=== PATIENT | male | born 1960 | race Caucasian/White ===

== ENCOUNTER → 2018-01-08 | Outpatient (CLI) | payer MEDICARE ==
--- NOTE | 2018-01-08 23:19 | MR ---
EXAMINATION TYPE: MR lumbar spine wo/w con DATE OF EXAM: 01/08/2018 COMPARISON: NONE HISTORY: LBP, BLE radic, laminectomy 3 yrs ago TECHNIQUE: Multiplanar, multisequence images of the lumbar spine were acquired utilizing 10 mL intravenous Gadav ist gadolinium contrast. The lumbar vertebra have normal alignment. Disc spaces are fairly well-maintained for the patient's a ge. There is hypertrophic facet arthropathy and ligamentum flavum thickening. There is spinal stenosi s at L5-S1. There is also mild relative spinal stenosis at L to 3 L3-4. There is no compression fract ure. There is no paraspinal mass. I see no focal bone destruction. The visualized sacroiliac joints a ppear intact. There is some posterior epidural enhancement at L5-S1 level. There is some thickening a nd epidural enhancement along the posterior longitudinal ligament at the L4 and L5 level. IMPRESSION: Epidural enhancement in the lower lumbar spine consistent with scarring. This is a change compared to the previous exam. There is a relative spinal stenosis as above at L5-S1 and L3-4. There is improvem ent in the spinal stenosis significantly at L4-5 level compared to last exam.
== END | disposition home or self-care (01) ==
LOC: RADMRIMAIN 18:08
PROVIDERS: ATTEND Family Medicine
DX: M48.07 Spinal stenosis, lumbosacral region (principal)
CPT/HCPCS: 82565; 72158; 36415; A9581

== ENCOUNTER 2018-01-15 10:52 | Day surgery (SDC) | payer MEDICARE ==
[2018-01-12 15:55] VITALS: BMI 32.5
[~2018-01-15 10:52] MED LIST: LACTATED RINGERS 1,000 ML IV SCH
[2018-01-15 11:11] VITALS: RESP 16
[2018-01-15] MEDS ORDERED: LIDOCAINE 1% 20 ML VIAL (10MG/ML) FOR IV START INTRADERMA ONE (11:33)
[2018-01-15 11:51] VITALS: TEMP 99.2
[2018-01-15] MEDS ORDERED: PROPOFOL 10 MG/ML 20 ML VIAL IV ONE (11:58)
--- NOTE | 2018-01-15 12:13 | P.PCN ---
Date of Procedure: 01/15/18 Procedure(s) Performed: BRIEF HISTORY: Patient is a 57-year-old pleasant white male, scheduled for an elective colonoscopy as a part of screening for colorectal neoplasia. PROCEDURE PERFORMED: Colonoscopy. PREOPERATIVE DIAGNOSIS: Screening for colon cancer. IV sedation per Anesthesia. PROCEDURE: After informed consent was obtained, the patient, was brought into the endoscopy unit. IV sedation was administered by Anesthesia under continuous monitoring. Digital rectal examination was normal. Initially the Olympus CF- 160 flexible video colonoscope was then inserted in the rectum, gradually advanced into the cecum without any difficulty. Careful examination was performed as the scope was gradually being withdrawn. Ileocecal valve and the appendiceal orifice were visualized and appeared normal. Prep was excellent. Mucosa of the cecum, ascending colon, transverse colon, descending colon, sigmoid colon, and rectum appeared normal. Retroflexion was performed in the rectum and no lesions were seen. The patient tolerated the procedure well. IMPRESSION: Normal-appearing colon from rectum to cecum with no evidence of colorectal neoplasia. RECOMMENDATIONS: Findings of this examination were discussed with the patient as well as his family. He was advised to have a repeat screening colonoscopy in 10 years.
[2018-01-15 12:30] VITALS: BP 137/83; PULSE 87
== END 2018-01-15 12:47 | disposition home or self-care (01) ==
LOC: ORWHC2ENDO 10:52
PROVIDERS: ATTEND Internal Medicine Gastroenterology
DX: Z12.11 Encounter for screening for malignant neoplasm of colon (principal); I10 Essential (primary) hypertension; Z79.899 Other long term (current) drug therapy; Z87.891 Personal history of nicotine dependence
CPT/HCPCS: J2704; G0121

== ENCOUNTER → 2019-09-02 | Outpatient (CLI) | payer MEDICARE, OTHER ==
[~2019-09-02] MED LIST changes: -LACTATED RINGERS 1,000 ML IV SCH; +REGADENOSON 0.4 MG/5 ML SYRINGE IV ONE
--- NOTE | 2019-09-02 11:20 | EST ---
EXERCISE STRESS AGE: 58 SEX: M HT: 72" WT: 235 PROTOCOL: Persantine Cardiolite HEART RATE REST: 96 BLOOD PRESSURE REST: 117/83 MAXIMUM HEART RATE ACHIEVED: 109 MAXIMUM BLOOD PRESSURE: 110/72 85% MPHR: 137 100% MPHR: 161 CLINICAL INFORMATION: Baseline EKG revealed normal sinus rhythm without significant ST changes. There was mild right ventricular conduction delay. With Lexiscan administration heart rate changed from 96 to 109 beats per minute and blood pressure changed from 117/83 to 110/72. EKG remained unremarkable. Patient was asymptomatic. By EKG criteria, this is unremarkable Lexiscan stress test. The nuclear scan results will be reported by the radiologist. MMODL / IJN: [id number] /
--- NOTE | 2019-09-02 11:26 | NM ---
EXAMINATION TYPE: NM stress lexiscan cardiolite DATE OF EXAM: 09/02/2019 COMPARISON: NONE HISTORY: Atypical chest pain TECHNIQUE: After the intravenous administration of 9.98 mCi Tc 99m Sestamibi - Cardiolite resting SP ECT images acquired 65 minutes post injection. The patient received 0.4mg Lexiscan, 26.2 mCi Tc 99m Sestamibi - Stress images obtained [address] injection FINDINGS: Review of stress and rest SPECT images demonstrates no distinct perfusion abnormality. Gated analysi s shows normal wall motion with an estimated left ventricular ejection fraction of 60 %. IMPRESSION: No scintigraphic evidence for reversible ischemia.
== END | disposition home or self-care (01) ==
LOC: RADNMMAIN 08:10
PROVIDERS: ATTEND Family Medicine
DX: R07.89 Other chest pain (principal)
CPT/HCPCS: 93017; 78452; A9500; J2785

== ENCOUNTER → 2021-01-28 | Outpatient (CLI) | payer MEDICARE ==
--- NOTE | 2021-01-28 16:46 | MR ---
EXAMINATION TYPE: MR lumbar spine wo con DATE OF EXAM: 01/28/2021 COMPARISON: Prior lumbar MRI 01/08/2018 HISTORY: Low back pain TECHNIQUE: Multiplanar, multisequence images of the lumbar spine were acquired. L1-L2: Normal disc appearance without desiccation. No herniation, protrusion or disc bulging. No ca nal stenosis is present. Foramina are patent bilaterally. L2-L3: Posterior broad-based disc bulge causes slight anterior mass effect on the thecal sac. No sign ificant spinal stenosis or foraminal encroachment. L3-L4: There are hypertrophic changes at the facets, ligamentum flavum the left shows some posterior lateral mass effect on the thecal sac. No significant spinal stenosis or foraminal encroachment. Ther e is a small posterior disc bulge causing slight anterior mass effect on the thecal sac. L4-L5: Posterior broad-based disc bulge causes minimal anterior mass effect on the thecal sac. There is facet arthropathy change present. No significant spinal stenosis. Circumferential disc bulge encro aches somewhat on the inferior margin of the neural foramen on the right greater than left. L5-S1: There is some increased signal posterior aspect of the disc may represent small annular tear s imilar to prior exam. Facet arthropathy changes present. There is some encroachment on the lateral re cesses. No significant spinal stenosis or foraminal encroachment. Lumbar segments show similar appearance, there are laminectomy changes at the lower lumbar spine, lum bar vertebral bodies show preserved height, alignment, stable bone marrow signal is multilevel rishi ioma formation. There is endplate discogenic marrow signal change, multilevel spondylosis. Some loss of disc height signal is again noted at L4-5 consistent with disc desiccation and degenerative disc d isease.. No paraspinal masses are identified. Conus medullaris has a normal appearance. Circumaorti c left renal vein noted incidentally. IMPRESSION: Degenerative disc disease, facet arthropathy as described above, findings are similar to prior exam.
== END | disposition home or self-care (01) ==
LOC: RADMRIMAIN 15:13
PROVIDERS: ATTEND Family Medicine
DX: M51.36 Other intervertebral disc degeneration, lumbar region (principal)
CPT/HCPCS: 72148

== ENCOUNTER → 2021-02-20 | Outpatient (CLI) | payer MEDICARE ==
[2021-02-20 13:57] VITALS: BP 164/96; PULSE 118; RESP 16; TEMP 98
--- NOTE | 2021-02-20 14:20 | P.PAINCN ---
History of Present Illness - Reason for Consult Consult date: 02/20/21 - History of Present Illness This is 60 years old male with a chronic history of severe low back pain, she reported that he had back pain for 20 years and started after he had an accident, the intensity of the pain increased over the last 5 years, and he had lumbar laminectomy surgery, he had some benefit from the surgery but recently intensity of the pain, increase significantly, he tried medication management without any significant relief, is currently on oxycodone and Opana 30 mg by mouth 12 hours, is getting prescription refills from his primary care, he feels some weakness in his left lower extremity, he denies any change in the bowel movement or urination, he denies any fever or night sweats, the intensity of the pain fluctuates between 7/10 increased to 10 over 10 with any activity. 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, psoriasis History of Any Multi-Drug Resistant Organisms: None Reported Additional Past Surgical History / Comment(s): colonoscopy Past Anesthesia/Blood Transfusion Reactions: No Reported Reaction Past Psychological History: No Psychological Hx Reported Smoking Status: Never smoker Past Alcohol Use History: Occasional Past Drug Use History: None Reported - Past Family History Sister(s) Family Medical History: Cancer Medications and Allergies Home Medications Medication Instructions Recorded Confirmed Type Oxymorphone HCl [Opana ER] 30 mg PO Q12H 01/12/18 02/20/21 History lisinopriL [Zestril] 5 mg PO DAILY 01/12/18 02/20/21 History oxyCODONE HCL [Roxicodone] 1 tab PO TID 01/15/18 02/20/21 History Allergies Allergy/AdvReac Type Severity Reaction Status Date / Time No Known Allergies Allergy Verified 01/15/18 11:19 Physical Exam Vitals: Vital Signs Temp Pulse Resp BP Pulse Ox 02/20/21 13:53 98.0 F 118 H 16 164/96 98 Intake and Output 02/19/21 02/20/21 02/20/21 22:59 06:59 14:59 Other: Weight 95.254 kg Physical Examinations : -Constitutiona : Cooperative , not in acute distress . -HEENT : nech : supple , no Lymphadenopathy , normal thyroid size . : eyes : no ptosis , no icterus, no photophobia . - neurologic : Cranial nerve II to XII intact , no focal neurological deffecit . -psychatric : alert , oriented X 3 , appropriate affect , intact judgment and insight . -Lymphatic : no Lymphadenopathy . - musculoskeltal : Lumber spine moter stegnth lower extremities ,thigh and legs 5/5 Right side , 4/5 Left side deep tendon reflexes : normal Knee Jerk , normal ankle Jerk lumber facet Loading Test =positive Right , positive Left Range of motion of the lumbar spine Flexion 30 degrees, extension 10 degrees strait leg raising test = negative bilaterally Fabere test= negative bilaterally. tenderness over the Sacroiliac joint on the Right , and Left sides Results Comments: MRI of the lumbar spine= multilevel lumbar degenerative disc disease and multilevel lumbar facet arthropathy. Assessment and Plan Plan: Assessment and plan=1-lumbar spondylosis with lumbar facet arthropathy without myelopathy. 2-lumbar degenerative disc disease. 3-previous lumbar laminectomy and decompression surgery. Patient will be good candidate to have diagnostic medial branch block at L3, L4, L5, bilaterally, and possible RFA Time with Patient: Greater than 30 PQRS Measure Charge Sheet Measure #130: Documentation of Current Meds in Medical Chart: Patient's medications documented in chart Measure #226: Tobacco Use: Screen & Cessation Intervention: Pt not a tobacco user Measure #111: Pneumonia Vaccination: Pneumococcal vaccine NOT administered or previously given Measure #47: Advance Care Plan: Advance care planning discussed & documented, pt chose/unable to give Measure #412: Opioid Treatment Agreement: No documentation of signed opioid treatment agreement Measure #408: Opioid Therapy Follow-up Evaluation: Patient had NO f/u eval minimum every 3 months during opioid therapy Measure #317: Preventitive Care & Scrn High Bld Press & F/U: Pre-hypertensive or hypertensive BP documented, pt will f/u with PCP Measure #128: Body Mass Index (BMI) Screening & Follow-up: BMI documented ABOVE normal parameters - f/u documented Measure #131: Pain Assessment & Follow-up: Pain positive & plan documented, Follow-up scheduled Measure #431: Unhealthy Alcohol Use Preventative Care & Scrn: Patient not identified as an unhealthy alcohol user PQRS Narrative: Smoking Status Former smoker Blood Pressure 164/96 Pain Intensity [Lower Back] 5 Scale Used Numeric (1 - 10) Hx Alcohol Use (MH) Yes Home Medications: Ambulatory Orders Oxymorphone HCl [Opana ER] 30 mg PO Q12H 01/12/18 lisinopriL [Zestril] 5 mg PO DAILY 01/12/18 oxyCODONE HCL [Roxicodone] 1 tab PO TID 01/15/18
== END ==
LOC: PNWHC3 13:15
PROVIDERS: ATTEND Specialist
DX: M47.816 Spondylosis without myelopathy or radiculopathy, lumbar region (principal); M51.36 Other intervertebral disc degeneration, lumbar region; M96.1 Postlaminectomy syndrome, not elsewhere classified; M19.90 Unspecified osteoarthritis, unspecified site; I10 Essential (primary) hypertension; Z87.891 Personal history of nicotine dependence
CPT/HCPCS: 99211

== ENCOUNTER 2021-03-19 12:23 | Day surgery (SDC) | payer MEDICARE ==
[~2021-03-19 12:23] MED LIST changes: +LACTATED RINGERS 1,000 ML IV SCH; -REGADENOSON 0.4 MG/5 ML SYRINGE IV ONE
[2021-03-19 12:55] VITALS: RESP 16; TEMP 97.6
[2021-03-19] MEDS ORDERED: ROPIVACAINE 5MG/ML 20ML VIAL ONE (13:10)
[2021-03-19] MEDS ORDERED: TRIAMCINOLONE ACETONIDE 40 MG/ML 1 ML VIAL ONE (13:10)
--- NOTE | 2021-03-19 13:28 | P.PCN ---
Date of Procedure: 03/19/21 Surgeon: Albert Brown Pathology: none sent Condition: stable Disposition: PACU Description of Procedure: PRE and post OPERATIVE DIAGNOSIS : Lumbar postlaminectomy pain syndrome, lumbar facet arthropathy without myelopathy PROCEDURE: Diagnostic bilateral L4 -5 , and L5-S1 medial branch block under fluoroscopy Physician: Albert Brown MD ANESTHESIA: Local only with 1% lidocaine . EBL: Negligible COMPLICATION: None. PROCEDURE INDICATION: Chronic low back pain secondary to Facet arthropathy unresponsive to conservative treatment. PROCEDURE DESCRIPTION: the patient was seen and identified in the preop holding area , risks and benefits and possible complications of the procedure and alternatives were discussed with the patient, and the patient agreed to proceed with the procedure and signed the consent. IV was started and vital signs monitored during the procedure and fluoroscopy was used to maximize the benefit and accuracy of the needle placement, sedation was given to decrease patient anxiety, patient was taken to the procedure room and placed in prone position vital signs monitored. The patient was brought into the procedure room and placed in prone position. Skin was prepped with Chloraprep and draped in a sterile manner. Lidocaine 1% was used to numb the skin up at the target points that were chosen as follows: at the L5-S1 level which corresponds to the dorsal ramus of L5 the target points were at the superior medial aspect of the sacral ala on each side of the spine on the AP view of fluoroscopy, and for the L3 and L4 medial branches the target points were the connection between the transverse process and the superior to go process of L4 and L5 respectively on the oblique views of fluoroscopy. I used 22-gauge 3-1/2 inch Quincke spinal needles for this procedure and after contacting bone at the target points mentioned above I injected 1 mL of a mixture of Kenalog 40 mg +5 MLS of Ropivacaine 0.5% PF . Patient tolerated procedure well. At the end of the procedure the needles removed and a bandage applied after the skin was cleaned the cleaning solution. patient was then taken to the recovery room in stable condition and monitored in the recovery room for 20-30 minutes and discharged home in stable condition after discharge criteria met . A copy of the needle placement picture was saved to the C-arm machine.
[2021-03-19 13:49] VITALS: BP 131/81; PULSE 79
--- NOTE | 2021-03-19 15:55 | FL ---
Fluoroscopy HISTORY: Pain 8 seconds fluoroscopy time supplied to the referring clinician. 4 intraoperative C-arm images docume nt the procedure. See dictated report from anesthesia.
== END 2021-03-19 14:01 | disposition home or self-care (01) ==
LOC: ORPAIN 12:23
PROVIDERS: ATTEND Anesthesiology
DX: I10 Essential (primary) hypertension (principal); M96.1 Postlaminectomy syndrome, not elsewhere classified; G89.29 Other chronic pain
CPT/HCPCS: 64493; 64494; J3301; J2795

== ENCOUNTER → 2021-04-12 | Day surgery (SDC) | payer MEDICARE ==
[~2021-04-12] MED LIST changes: +LACTATED RINGERS 1,000 ML IV ONE; +ROPIVACAINE 5MG/ML 20ML VIAL ONE; +TRIAMCINOLONE ACETONIDE 40 MG/ML 1 ML VIAL ONE
[2021-04-12 12:19] VITALS: TEMP 96.6
--- NOTE | 2021-04-12 14:05 | FL ---
EXAMINATION TYPE: FL guided pain mgmt statistic DATE OF EXAM: 04/12/2021 HISTORY: Fluoroscopy time 9 seconds of fluoroscopy provided. IMPRESSION: 1. Fluoroscopy time.
[2021-04-12 14:09] VITALS: BP 136/73; PULSE 70; RESP 16
--- NOTE | 2021-04-15 09:22 | P.PCN ---
Date of Procedure: 04/12/21 Procedure(s) Performed: PREOPERATIVE DIAGNOSIS : 1- Lumbar spondylosis with Facet Arthropathy without myelopathy . 2- Lumber degenerative disc disease POSTOPERATIVE DIAGNOSIS: 1- Lumbar spondylosis with Facet Arthropathy without myelopathy . 2- Lumber degenerative disc disease PROCEDURE: Diagnostic bilateral L3 , L4 , and L5 medial branch block under fluoroscopy guidance(fluoroscopy images available in the radiology Department ) ( To target the facet joint between L4-5 , and L5-S1 ) #2nd ANESTHESIA:, local anesthetic only.. EBL: Minimal COMPLICATION: None PROCEDURE INDICATION: Chronic low back pain secondary to Facet arthropathy unresponsive to conservative treatment. PROCEDURE DESCRIPTION: the patient was seen and identified in the preop holding area , risks and benefits and possible complications of the procedure and alternative were discussed with the patient, and the patient agreed to proceed with the procedure and signed the consent and vital signs monitored during the procedure and fluoroscopy was used to maximize the benefit and accuracy of the needle placement, , patient was taken to the procedure room and placed in prone position vital signs monitored in the back prepped with chlorhe xidine X3 then under strict sterile technique using a right oblique fluoroscopy ,the junction of the transverse process and the superior articulating process of the right L3 , L4 , and L5 vertebra which corresponding to the fluoroscopy image of the eye of the Aamir dog on the block side for the medial branches and subsequently , after local infiltration of skin and subcu tissuies with Ropivacaine 0.5 % , one mL at each level ,then 25-gauge Quincke-type needles , 3 needle was used , each one of them placed at the junction of the base of the transverse process and the superior articular process at the appropriate level, and the needle was advanced until the periosteum contacted, needle placement confirmed with AP oblique and lateral view and after appropriate needle placement confirmed, and after negative aspiration for heme and CSF and there was no paresthesia 1-1/2 mL of Ropivacaine 0.5% mixed with 20 mg Kenalog , then half mL injected at each level after negative aspiration the needle subsequently removed and the same procedure repeated for the left side at left side at L3 , L4 and L5 levels. At the end of the procedure and the needles removed and a bandage applied after the skin was cleaned the cleaning solution patient taken to recovery room in stable condition and monitors in the recovery room for 20-30 minutes and discharged home in stable condition after discharge criteria met and patient will follow up with the pain clinic in 2-4 weeks
== END ==
LOC: ORPAIN 11:54
PROVIDERS: ATTEND Specialist
DX: G89.29 Other chronic pain (principal); M47.816 Spondylosis without myelopathy or radiculopathy, lumbar region
CPT/HCPCS: 64493; 64494; J3301; J2795

== ENCOUNTER → 2021-05-06 | Outpatient (CLI) | payer MEDICARE ==
[2021-05-06 11:26] VITALS: BP 130/83; PULSE 107; RESP 22; TEMP 98
--- NOTE | 2021-05-06 11:26 | P.PN ---
Subjective Progress Note Date: 05/06/21 This is Follow up visits for this 60 years old male with a chronic history of severe low back pain, patient diagnosed with lumbar spondylosis with lumbar facet arthropathy without myelopathy and lumbar degenerative disc disease, recently we have done diagnostic medial branch block lumbar area at L3, L4, L5 X2 , patient reported that he got more than 90% improvement in his low back pain after each block and he is active tip of daily livings improved difficulty after each block , the improvement was for short-term the pain came back again and currently is complaining of severe low back pain, denies any motor or sensory deficit Objective - Exam Physical Examinations : -Constitutiona : Cooperative , not in acute distress . -HEENT : nech : supple , no Lymphadenopathy , normal thyroid size . : eyes : no ptosis , no icterus, no photophobia . - neurologic : Cranial nerve II to XII intact , no focal neurological deffecit . -psychatric : alert , oriented X 3 , appropriate affect , intact judgment and insight . -Lymphatic : no Lymphadenopathy . - musculoskeltal : Lumber spine moter stegnth lower extremities ,thigh and legs 5/5 Right side , 4/5 Left side deep tendon reflexes : normal Knee Jerk , normal ankle Jerk lumber facet Loading Test =positive Right , positive Left Range of motion of the lumbar spine Flexion 30 degrees, extension 10 degrees strait leg raising test = negative bilaterally Fabere test= negative bilaterally. tenderness over the Sacroiliac joint on the Right , and Left sides Results MRI of the lumbar spine= multilevel lumbar degenerative disc disease and multilevel lumbar facet arthropathy. Assessment and Plan Plan: Assessment and plan=1-lumbar spondylosis with lumbar facet arthropathy without myelopathy. 2-lumbar degenerative disc disease. 3-previous lumbar laminectomy and decompression surgery. Patient had more than 90% improvement of his low back pain after diagnostic medial branch block x2 Patient will be good candidate to have RFA medial branch block at L3, L4, L5, bilaterally PQRS Measure Charge Sheet Measure #130: Documentation of Current Meds in Medical Chart: Patient's medications documented in chart Measure #226: Tobacco Use: Screen & Cessation Intervention: Pt not a tobacco user Measure #111: Pneumonia Vaccination: Pneumococcal vaccine NOT administered or previously given Measure #47: Advance Care Plan: Advance care planning discussed & documented, pt chose/unable to give Measure #412: Opioid Treatment Agreement: No documentation of signed opioid treatment agreement Measure #408: Opioid Therapy Follow-up Evaluation: Patient had NO f/u eval minimum every 3 months during opioid therapy Measure #317: Preventitive Care & Scrn High Bld Press & F/U: 130/83 normal BP documented, pt will f/u with PCP Measure #128: Body Mass Index (BMI) Screening & Follow-up: BMI documented ABOVE normal parameters - f/u documented Measure #131: Pain Assessment & Follow-up: Pain positive & plan documented, Follow-up scheduled Measure #431: Unhealthy Alcohol Use Preventative Care & Scrn: Patient not identified as an unhealthy alcohol user PQRS Narrative: Time with Patient: Less than 30
== END ==
LOC: PNWHC3 11:04
PROVIDERS: ATTEND Specialist
DX: M96.1 Postlaminectomy syndrome, not elsewhere classified (principal); M47.816 Spondylosis without myelopathy or radiculopathy, lumbar region; M51.36 Other intervertebral disc degeneration, lumbar region; Z87.891 Personal history of nicotine dependence
CPT/HCPCS: 99211

== ENCOUNTER 2021-05-23 16:12 | Emergency (ER) | payer MEDICARE ==
[2021-05-23 16:37] VITALS: TEMP 98.2
--- NOTE | 2021-05-23 17:39 | ED ---
General Adult HPI - General Chief complaint: Recheck/Abnormal Lab/Rx Stated complaint: elevated BP Time Seen by Provider: 05/23/21 16:46 Source: patient Mode of arrival: ambulatory Limitations: no limitations - History of Present Illness Initial comments: Dictation was produced using Moz dictation software. please excuse any grammatical, word or spelling errors. Chief Complaint: 60-year-old male presents to the emergency Department for sore throat, tachycardia and elevated blood pressure. History of Present Illness: Patient is 60-year-old male presents today with sore throat and left-sided facial pain. States that over the last several days days he's noted that he had some ulcers noted to his posterior soft palate. It hurts when he swallows. Denies any obvious sick exposures. He states he does have pain from his submental lymph nodes. Denies any fevers. He took Adipex today. He's been taking Adipex for the last several weeks. Denies any chest pain or short of breath. No runny nose. The ROS documented in this emergency department record has been reviewed and confirmed by me. Those systems with pertinent positive or negative responses have been documented in the HPI. All other systems are other negative and/or noncontributory. PHYSICAL EXAM: General Impression: Alert and oriented x3, not in acute distress HEENT: Normocephalic atraumatic, extra-ocular movements intact, pupils equal and reactive to light bilaterally, mucous membranes moist. Cardiovascular: Heart regular rate and rhythm Chest: Able to complete full sentences, no retractions, no tachypnea Abdomen: abdomen soft, non-tender, non-distended, no organomegaly Musculoskeletal: Pulses present and equal in all extremities, no peripheral edema Motor: no focal deficits noted Neurological: CN II-XII grossly intact, no focal motor or sensory deficits noted Skin: Intact with no visualized rashes Psych: Normal affect and mood ED course: 60-year-old male presents to the emergency department for sore throat and lymphadenopathy of the left submental area. Signs upon arrival shows heart rate of 135, rest of vital signs within acceptable limits. Patient takes Adipex. EKG interpretation: Ventricular rate 120, sinus tachycardia, OH interval 150, QRS 96, QTC 414. No OH prolongation, no QTC prolongation, no ST or T-wave changes noted. EKG compared to 03/21/2015 showing no changes. Overall, this EKG is unremarkable Laboratory evaluation obtained. CBC, metabolic panel is unremarkable. For panel viral PCR is negative. Patient is negative. Heterophile antibodies negative. Patient observed in emergency department for approximately 3 hours and 30 minutes. His vital signs are improved. Patient admits to using Adipex for weight loss. Perhaps his tachycardia when he arrived was related weight loss supplements. His repetitive bedside at 7:45 PM for any significant medical condition. He is resting comfortably and has no complaints. This point believe that patient's symptoms are secondary to viral URI. Patient is well-appearing upon reevaluation. Patient be discharged. - Related Data Home Medications Medication Instructions Recorded Confirmed oxyCODONE HCL [Roxicodone] 30 mg PO QID 01/15/18 05/23/21 Meloxicam [Mobic] 7.5 mg PO BID PRN 05/01/21 05/23/21 Phentermine HCl [Adipex-P] 37.5 mg PO DAILY 05/23/21 05/23/21 Testosterone Cypionate 100 mg IM WE 05/23/21 05/23/21 [Depo-Testosterone] lisinopriL 10 mg PO DAILY 05/23/21 05/23/21 Allergies Allergy/AdvReac Type Severity Reaction Status Date / Time No Known Allergies Allergy Verified 05/23/21 17:56 Review of Systems ROS Statement: Those systems with pertinent positive or pertinent negative responses have been documented in the HPI. ROS Other: All systems not noted in ROS Statement are negative. 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, psoriasis History of Any Multi-Drug Resistant Organisms: None Reported Past Surgical History: Back Surgery Additional Past Surgical History / Comment(s): colonoscopy, PAIN CLINIC PROCEDURES, LAMINECTOMY Past Anesthesia/Blood Transfusion Reactions: No Reported Reaction Past Psychological History: No Psychological Hx Reported Smoking Status: Never smoker Past Alcohol Use History: None Reported Past Drug Use History: None Reported - Past Family History Sister(s) Family Medical History: Cancer General Exam Limitations: no limitations Course Vital Signs 05/23/21 05/23/21 05/23/21 16:34 17:03 18:00 Temperature 98.2 F Pulse Rate 141 H 135 H 101 H Respiratory 2 L 18 18 Rate Blood Pressure 198/104 161/102 129/88 O2 Sat by Pulse 97 96 Oximetry 05/23/21 19:00 Temperature Pulse Rate 96 Respiratory 18 Rate Blood Pressure 117/63 O2 Sat by Pulse Oximetry Medical Decision Making - Lab Data Result diagrams: 05/23/21 17:39 05/23/21 17:39 Lab Results 05/23/21 05/23/21 05/23/21 Range/Units 17:39 17:39 17:39 WBC 9.0 (3.8-10.6) k/uL RBC 4.74 (4.30-5.90) m/uL Hgb 15.4 (13.0-17.5) gm/dL Hct 45.1 (39.0-53.0) % MCV 95.3 (80.0-100.0) fL MCH 32.6 (25.0-35.0) pg MCHC 34.2 (31.0-37.0) g/dL RDW 12.6 (11.5-15.5) % Plt Count 232 (150-450) k/uL MPV 7.1 Neutrophils % 78 % Lymphocytes % 14 % Monocytes % 6 % Eosinophils % 0 % Basophils % 0 % Neutrophils # 7.0 (1.3-7.7) k/uL Lymphocytes # 1.3 (1.0-4.8) k/uL Monocytes # 0.5 (0-1.0) k/uL Eosinophils # 0.0 (0-0.7) k/uL Basophils # 0.0 (0-0.2) k/uL Sodium 137 (137-145) mmol/L Potassium 3.7 (3.5-5.1) mmol/L Chloride 98 (98-107) mmol/L Carbon Dioxide 29 (22-30) mmol/L Anion Gap 10 mmol/L BUN 12 (9-20) mg/dL Creatinine 1.12 (0.66-1.25) mg/dL Est GFR (CKD-EPI)AfAm 82 (>60 ml/min/1.73 sqM) Est GFR (CKD-EPI)NonAf 71 (>60 ml/min/1.73 sqM) Glucose 124 H (74-99) mg/dL Calcium 9.7 (8.4-10.2) mg/dL Magnesium 1.7 (1.6-2.3) mg/dL Troponin I <0.012 (0.000-0.034) ng/mL Heterophile Antibody (Negative) Influenza Type A (PCR) (Not Detectd) Influenza Type B (PCR) (Not Detectd) RSV (PCR) (Not Detectd) SARS-CoV-2 (PCR) (Not Detectd) Group A Strep Rapid (Negative) 05/23/21 05/23/21 05/23/21 Range/Units 17:39 17:39 17:39 WBC (3.8-10.6) k/uL RBC (4.30-5.90) m/uL Hgb (13.0-17.5) gm/dL Hct (39.0-53.0) % MCV (80.0-100.0) fL MCH (25.0-35.0) pg MCHC (31.0-37.0) g/dL RDW (11.5-15.5) % Plt Count (150-450) k/uL MPV Neutrophils % % Lymphocytes % % Monocytes % % Eosinophils % % Basophils % % Neutrophils # (1.3-7.7) k/uL Lymphocytes # (1.0-4.8) k/uL Monocytes # (0-1.0) k/uL Eosinophils # (0-0.7) k/uL Basophils # (0-0.2) k/uL Sodium (137-145) mmol/L Potassium (3.5-5.1) mmol/L Chloride (98-107) mmol/L Carbon Dioxide (22-30) mmol/L Anion Gap mmol/L BUN (9-20) mg/dL Creatinine (0.66-1.25) mg/dL Est GFR (CKD-EPI)AfAm (>60 ml/min/1.73 sqM) Est GFR (CKD-EPI)NonAf (>60 ml/min/1.73 sqM) Glucose (74-99) mg/dL Calcium (8.4-10.2) mg/dL Magnesium (1.6-2.3) mg/dL Troponin I (0.000-0.034) ng/mL Heterophile Antibody Negative (Negative) Influenza Type A (PCR) Not Detected (Not Detectd) Influenza Type B (PCR) Not Detected (Not Detectd) RSV (PCR) Not Detected (Not Detectd) SARS-CoV-2 (PCR) Not Detected (Not Detectd) Group A Strep Rapid Negative (Negative) Disposition Clinical Impression: Sore throat Disposition: HOME SELF-CARE Condition: Fair Instructions (If sedation given, give patient instructions): Pharyngitis (ED) Is patient prescribed a controlled substance at d/c from ED?: No Referrals: Jason Kline MD [Primary Care Provider] - 1-2 days
[2021-05-23 18:11] LABS: Calcium 9.7 mg/dL (8.4-10.2); Magnesium 1.7 mg/dL (1.6-2.3); Potassium 3.7 mmol/L (3.5-5.1)
[2021-05-23 18:13] LABS: Basophils % (A) 0 %; Eosinophils % (A) 0 %; HCT 45.1 % (39.0-53.0); HGB 15.4 gm/dL (13.0-17.5); Lymphocytes # (A) 1.3 k/uL (1.0-4.8); Lymphocytes % (A) 14 %; MCH 32.6 pg (25.0-35.0); MCHC 34.2 g/dL (31.0-37.0); MCV 95.3 fL (80.0-100.0); Mean Platelet Volume 7.1; Monocytes # (A) 0.5 k/uL (0-1.0); Monocytes % (A) 6 %; Neutrophils % (A) 78 %; Platelet Count 232 k/uL (150-450); RBC 4.74 m/uL (4.30-5.90); RDW 12.6 % (11.5-15.5)
[2021-05-23 19:55] VITALS: BP 135/95; PULSE 98; RESP 16
== END 2021-05-23 19:50 | disposition home or self-care (01) ==
LOC: EC 16:12
DX: J02.9 Acute pharyngitis, unspecified (principal); I10 Essential (primary) hypertension; M19.90 Unspecified osteoarthritis, unspecified site
CPT/HCPCS: 36415; 80048; 83735; 84484; 85025; 86308; 87081; 87430; 87636; 93005; 99283

== ENCOUNTER 2021-05-24 12:40 | Day surgery (SDC) | payer MEDICARE ==
[2021-05-23 09:17] VITALS: BMI 29.1
[2021-05-24 12:55] VITALS: TEMP 97.8
[2021-05-24] MEDS ORDERED: ROPIVACAINE 5MG/ML 20ML VIAL ONE (13:07)
[2021-05-24] MEDS ORDERED: LIDOCAINE 1% INJ 10MG/ML (20 ML MDV) ONE (13:07)
--- NOTE | 2021-05-24 13:40 | P.PCN ---
Date of Procedure: 05/24/21 Description of Procedure: PREOPERATIVE DIAGNOSIS: Lumbar Spondylosis POSTOPERATIVE DIAGNOSIS: Same PROCEDURES: Radiofrequency ablation of the L3, L4, L5 medial branches with fluoroscopic guidance bilaterally SURGEON: Alvarado Cruz MD. ANESTHESIA: Lidocaine 1% 5 mL, Monitored anesthesia care with anesthesia team EBL: Minimal Fluoroscopy was used for the procedure and images were saved in the radiology portion of the chart. PROCEDURE INDICATION: The patient with low back pain secondary to lumbar facet arthropathy who had more than 50% relief of pain with previous diagnostic lumbar medial branch block X2. PROCEDURE DESCRIPTION / TECHNIQUE: The patient was seen and identified in the preoperative area. Risks, benefits, complications, including but not limited to risk of infection ,bleeding , allergic reactions to the medications and incomplete pain relief , and alternatives were discussed with the patient, the patient agreed to proceed with the procedure and signed the consent. IV was started. The operative site was marked. Patient was taken to the OR and time out was completed. The patient was placed in the prone position on the procedure table. The lumbar area was prepped and draped in the usual sterile fashion. . Vital signs were closely monitored during the procedure .IV sedation was used during the procedure to decrease patients anxiety. Using AP and then oblique fluoroscopy, the "eye of the Aamir dog" corresponding to the connection between the superior and transverse articular processes of the [] L4 and L5 as well as the sacral ala were identified, marked, and localized with 1% lidocaine. Subsequently, an 18 guage 100 radiofrequency cannula with a 10-mm active tip was advanced guided by fluoroscopy to the identified target at each site. Needle positioning was confirmed on AP, oblique and lateral fluoroscopy. Motor testing at 2.5 Hz was done with paraspinal muscle stimulation only, and no radicular symptoms down the legs. Then 1 mL 0.5% ropivacaine was injected in each site. Radiofrequency thermocoagulation at 80 degrees celsius for 90 seconds was then performed. [place] were removed. Sterile dressings were applied. COMPLICATIONS: No acute complications. DISPOSITION / PLANS: The patient was placed in a supine position and transferred to the recovery area in a stable condition for observation and was discharged from the recovery room after meeting discharge criteria. Home discharge instructions given to the patient by the staff. The patient will follow up in clinic in 4 weeks.
[2021-05-24 13:46] VITALS: RESP 16
--- NOTE | 2021-05-24 13:47 | FL ---
Fluoroscopy HISTORY: Pain 24 seconds fluoroscopy time supplied to the referring clinician. 5 intraoperative C-arm images docum ent the procedure. See dictated report from anesthesia.
[2021-05-24 13:59] VITALS: BP 137/76; PULSE 99
== END 2021-05-24 14:18 | disposition home or self-care (01) ==
LOC: ORPAIN 12:40
PROVIDERS: ATTEND Anesthesiology
DX: M47.816 Spondylosis without myelopathy or radiculopathy, lumbar region (principal)
CPT/HCPCS: 64635; 64636; J2001; J2795

== ENCOUNTER → 2021-06-17 | Outpatient (CLI) | payer MEDICARE ==
--- NOTE | 2021-06-17 11:31 | P.PN ---
Subjective Progress Note Date: 06/17/21 This is Follow up visits for this 60 years old male with chronic history of severe low back pain, patient diagnosed with lumbar spondylosis with lumbar facet arthropathy without myelopathy, and lumbar degenerative disc disease, recently we have done RFA medial branch block lumbar area at L3, L4, L5 , pat ient reported that he got more than 60% improvement in his low back pain after the procedure , and currently is complaining of severe low back pain, mainly on the left side at the lateral aspect of his left iliac crest, denies any motor or sensory deficit. Physical Examinations : -Constitutiona : Cooperative , not in acute distress . -HEENT : nech : supple , no Lymphadenopathy , normal thyroid size . : eyes : no ptosis , no icterus, no photophobia . - neurologic : Cranial nerve II to XII intact , no focal neurological deffecit . -psychatric : alert , oriented X 3 , appropriate affect , intact judgment and insight . -Lymphatic : no Lymphadenopathy . - musculoskeltal : Lumber spine moter stegnth lower extremities ,thigh and legs 5/5 Right side , 4/5 Left side deep tendon reflexes : normal Knee Jerk , normal ankle Jerk lumber facet Loading Test =positive Right , positive Left Range of motion of the lumbar spine Flexion 30 degrees, extension 10 degrees strait leg raising test = negative bilaterally Fabere test= negative bilaterally. tenderness over the lateral aspect of the left iliac crest Results MRI of the lumbar spine= multilevel lumbar degenerative disc disease and multilevel lumbar facet arthropathy. Assessment and plan= 1-lumbar spondylosis with lumbar facet arthropathy without myelopathy. 2-lumbar degenerative disc disease. 3-previous lumbar laminectomy and decompression surgery. 4- left Cluneal nerve neuralgia Patient could benefit from left cluneal nerve block under fluoroscopy guidance PQRS Measure Charge Sheet Measure #130: Documentation of Current Meds in Medical Chart: Patient's medications documented in chart Measure #226: Tobacco Use: Screen & Cessation Intervention: Pt not a tobacco user Measure #111: Pneumonia Vaccination: Pneumococcal vaccine NOT administered or previously given Measure #47: Advance Care Plan: Advance care planning discussed & documented, pt chose/unable to give Measure #412: Opioid Treatment Agreement: No documentation of signed opioid treatment agreement Measure #408: Opioid Therapy Follow-up Evaluation: Patient had NO f/u eval minimum every 3 months during opioid therapy Measure #317: Preventitive Care & Scrn High Bld Press & F/U: normal BP documented, pt will f/u with PCP Measure #128: Body Mass Index (BMI) Screening & Follow-up: BMI documented ABOVE normal parameters - f/u documented Measure #131: Pain Assessment & Follow-up: Pain positive & plan documented, Follow-up scheduled Measure #431: Unhealthy Alcohol Use Preventative Care & Scrn: Patient not identified as an unhealthy alcohol user PQRS Narrative:
[2021-06-17 11:37] VITALS: BP 109/66; PULSE 110; RESP 20; TEMP 97.8
== END ==
LOC: PNWHC3 10:57
PROVIDERS: ATTEND Specialist
DX: M47.816 Spondylosis without myelopathy or radiculopathy, lumbar region (principal); M51.36 Other intervertebral disc degeneration, lumbar region; M96.1 Postlaminectomy syndrome, not elsewhere classified; G58.8 Other specified mononeuropathies; Z87.891 Personal history of nicotine dependence
CPT/HCPCS: 99211

== ENCOUNTER 2021-07-16 12:03 | Day surgery (SDC) | payer MEDICARE ==
[2021-07-15 10:38] VITALS: BMI 29.1
[~2021-07-16 12:03] MED LIST changes: -LACTATED RINGERS 1,000 ML IV ONE; -ROPIVACAINE 5MG/ML 20ML VIAL ONE; -TRIAMCINOLONE ACETONIDE 40 MG/ML 1 ML VIAL ONE
[2021-07-16 12:36] VITALS: TEMP 98
[2021-07-16] MEDS ORDERED: ROPIVACAINE 5MG/ML 20ML VIAL ONE (12:55)
[2021-07-16] MEDS ORDERED: TRIAMCINOLONE ACETONIDE 40 MG/ML 1 ML VIAL ONE (12:55)
--- NOTE | 2021-07-16 13:08 | P.PCN ---
Date of Procedure: 07/16/21 Surgeon: Albert Brown Pathology: none sent Condition: stable Disposition: PACU Description of Procedure: pre- and postoperative diagnosis : Bilateral cluneal nerve entrapment procedure: Bilateral cluneal nerve block under fluoroscopic guidance physician:Albert Brown MD Anesthesia: Local only with lidocaine 1% Description of procedure: The patient was seen in the preop holding area consent was obtained then she was brought into the procedure room and placed in prone position. ASA monitors were applied. Skin was prepped with ChloraPrep and draped in a sterile manner. Lidocaine 1% was used to numb the skin up at the target points. The target points were chosen as follows: The superior cluneal nerve branches to medial, intermediate, and lateral branches at the medial aspect of the iliac crest slightly lateral to the posterior superior iliac spine. The target points were chosen a few centimeters lateral to the posterior superior iliac spine in 3 spots at the edge of the iliac crest on each side of the spine. I used 22- gauge 3-1/2 inch Quincke spinal needle for this procedure.After contacting bone I injected 2 mls of a mixture of 40 mg of Kenalog +11 MLS of ropivacaine 0.5% in each spot. patient tolerated procedure well. The final picture was saved to the fluoroscopy machine.
[2021-07-16 13:28] VITALS: BP 137/77; PULSE 85; RESP 18
--- NOTE | 2021-07-16 13:43 | FL ---
EXAMINATION TYPE: FL guided pain mgmt statistic DATE OF EXAM: 07/16/2021 HISTORY: Fluoroscopy time 7 seconds of fluoroscopy provided. IMPRESSION: 1. Fluoroscopy time.
== END 2021-07-16 13:31 | disposition home or self-care (01) ==
LOC: ORPAIN 12:03
PROVIDERS: ATTEND Anesthesiology
DX: G58.8 Other specified mononeuropathies (principal)
CPT/HCPCS: 64450; J3301; J2795

== ENCOUNTER → 2024-02-10 | Outpatient (CLI) | payer MEDICARE ==
--- NOTE | 2024-02-11 07:52 | XR ---
EXAMINATION TYPE: XR thoracic spine complete DATE OF EXAM: 02/10/2024 COMPARISON: NONE HISTORY: Pain TECHNIQUE: 3 views submitted FINDINGS: Alignment is anatomic. There is no compression deformities. Multilevel mild to moderate hypertrophic and degenerative change. Hypertrophic and degenerative changes lower cervical spine. Mild osteopenia . There is a subtle curvature of the thoracic spine. IMPRESSION: 1. Mild to moderate multilevel degenerative disc disease.
--- NOTE | 2024-02-11 07:56 | XR ---
EXAM TYPE: LUMBAR SPINE X RAY SERIES COMPARISON: NONE HISTORY: Pain TECHNIQUE: 4 views are submitted. FINDINGS: Alignment is anatomic. The pedicles are intact. The transverse processes are intact. There is no s pondylolysis or spondylolisthesis. Diffuse osteopenia. There is multilevel mild degenerative disc di sease. Marked facet arthropathy L3-4, L4-5 and L5-S1. Correlate for prior laminectomy at L4 and L5 IMPRESSION: 1. Diffuse osteopenia with multilevel degenerative disc disease. Suspect prior laminectomy at L4 and L5. 2 Advanced facet arthropathy levels L3-S1 with suspected foraminal encroachment..
== END | disposition home or self-care (01) ==
LOC: RADXRYALE 15:53
PROVIDERS: ATTEND Nurse Practitioner Family
DX: M51.36 Other intervertebral disc degeneration, lumbar region (principal); M85.88 Other specified disorders of bone density and structure, other site; M47.816 Spondylosis without myelopathy or radiculopathy, lumbar region; M51.34 Other intervertebral disc degeneration, thoracic region
CPT/HCPCS: 72072; 72110

== ENCOUNTER → 2024-04-15 | Outpatient (CLI) | payer MEDICARE ==
--- NOTE | 2024-04-15 10:24 | MR ---
EXAMINATION TYPE: MR lumbar spine wo/w con DATE OF EXAM: 04/15/2024 COMPARISON: 01/18/2018 HISTORY: Low back pain into left lower extremity TECHNIQUE: T1 and T2 axial and sagittal images of the lumbar spine are submitted. Postcontrast T1 s agittal and axial images submitted. Contrast: 10 mL gadavist FINDINGS: There is no abnormal signal seen within the visualized spinal cord or paraspinal soft tissu es. There is a terminal filum lipoma stable from prior exam. At L1-2 there is circumferential disc bulging with hypertrophy of the facets. Diminutive spinal canal contributes to borderline central stenosis and there is mild bilateral foraminal encroachment greate r on the left due to greater left lateral disc bulging. Vertebral body hemangioma of L1 and L2. At L2-3 there is broad-based disc bulging with hypertrophy of the facets and ligamentum flavum indent s diminutive spinal canal with mild canal stenosis and bilateral foraminal protrusion. Disc bulging g reater laterally to the left with greater left-sided foraminal encroachment. At L3-4 there is hypertrophic change of the facets. Broad-based disc bulging with hypertrophy of the facets. There is mild bilateral canal stenosis and foraminal protrusion. Vertebral hemangioma L3 and L4. At L4-5 there is grade 1 anterolisthesis with facet arthropathy and suggestive of prior surgery. Ther e is lateral and anterior mild compression of thecal sac with mild canal stenosis. Frontal disc bulgi ng with mild bilateral foraminal encroachment. There is lateral recess stenosis bilaterally. At L5-S1 there is facet arthropathy. There is vertebral hemangioma of L5 and S1. There is no evidence of canal stenosis. There is no disc herniation although there is a tiny annular tear. Neural foramin a patent. Previous L5 laminectomy suggested. IMPRESSION: 1. Postsurgical changes with multilevel disc bulging or protrusion and hypertrophic changes since. Fi ndings result in borderline canal stenosis L1-2 mild canal stenosis L2-3, L3-4 and L4-5. 2. Multilevel foraminal encroachment. Disc bulging greater laterally to the left at L1-2 and L2-L3 wi th mild left foraminal encroachment.
== END | disposition home or self-care (01) ==
LOC: RADMRIMAIN 07:58
PROVIDERS: ATTEND Family Medicine
DX: M48.061 Spinal stenosis, lumbar region without neurogenic claudication (principal); M51.36 Other intervertebral disc degeneration, lumbar region
CPT/HCPCS: 72158; A9585